=== PATIENT | male | born 1955 | race Caucasian/White ===

== ENCOUNTER → 2020-03-30 08:33 | Outpatient (CLI) | payer OTHER, SELFPAY ==
[2020-03-31 22:33] LABS: COVID19 Sendout Not Detected (Not Detect)
== END ==
PROVIDERS: Family Provider Family Medicine; PCP Family Medicine; Visit Provider Physician Assistant
DX: Z11.59 Encounter for screening for other viral diseases (principal)
CPT/HCPCS: 87635

== ENCOUNTER → 2020-04-01 11:09 | Outpatient (CLI) | payer OTHER, SELFPAY ==
[2020-04-01 12:12] LABS: Add Manual Diff / Slide Review NO; Basophils Absolute Auto 0 /uL (0-100); Basophils Percent Auto 0.4 % (0-2); Eosinophils Absolute Auto 100 /uL (0-450); Eosinophils Percent Auto 1.1 % (2-4); Hematocrit 45.8 % (41-53); Hemoglobin 15.7 g/dL (13.5-17.5); Lymphocytes Absolute Auto 1900 /uL (1100-4500); Lymphocytes Percent Auto 33.5 % (25-40); Mean Corpuscular HGB Conc 34.2 % (30-36); Mean Corpuscular Volume 96.6 fL (80-100); Monocytes Absolute Auto 600 /uL (0-900); Monocytes Percent Auto 10.4 % (3-14); Neutrophils Absolute Auto 3200 /uL (1500-7000); Neutrophils Percent Auto 54.6 % (50-75); Platelet Count 219 X10^3/uL (150-400); Red Blood Cell Count 4.74 X10^6/uL (4.5-5.9); Red Cell Distribution Width 13.1 % (11.6-14.8); White Blood Cell Count 5.8 X10^3/uL (4.5-11.0)
[2020-04-01 12:14] LABS: Appearance Urine UA CLEAR; Bilirubin Urine UA NEGATIVE (NEGATIVE); Color Urine UA YELLOW; Glucose Urine UA NEGATIVE (Negative); Ketones Urine UA NEGATIVE (NEGATIVE); Leukocyte Esterase Urine UA NEGATIVE (NEGATIVE); Nitrite Urine UA NEGATIVE (Negative); Occult Blood Urine UA TRACE-LYSED (Negative); Protein Urine UA NEGATIVE (Negative); Urobilinogen Urine UA 0.2 E.U./dL (0.2); pH Urine UA 5.5 (4.5-8.0)
[2020-04-01 12:24] LABS: Alanine Aminotransferase 16 IU/L (<50); Albumin 4.2 g/dL (3.5-5.0); Albumin Globulin Ratio 1.4 (1.0-2.8); Alkaline Phosphatase 74 U/L (38-126); Aspartate Aminotransferase 23 IU/L (17-59); BUN Creatinine Ratio 12.2 (6-22); Bilirubin Total 0.7 mg/dL (0.2-1.3); Blood Urea Nitrogen 11 mg/dL (9-20); Calcium 9.3 mg/dL (8.4-10.2); Carbon Dioxide 31 mmol/L (22-32); Chloride 104 mmol/L (98-107); Cholesterol 221 mg/dL (140-199); Estimated Glomerular Filt Rate > 60.0 mL/min (>60); Globulin 3.1 g/dL (1.7-4.1); Glucose 92 mg/dL (80-110); HDL Cholesterol 43 mg/dL (40-60); HEMOLYSIS < 15 (0-50); LDL Cholesterol Calculated 145 mg/dL (<100); Potassium 4.7 mmol/L (3.4-5.1); Sodium 139 mmol/L (137-145); Total Protein 7.3 g/dL (6.3-8.2); Triglycerides 166 mg/dL (35-150)
== END ==
PROVIDERS: Family Provider Family Medicine; PCP Registered Nurse; Referring Provider Registered Nurse; Visit Provider Registered Nurse
DX: Z00.00 Encounter for general adult medical examination without abnormal findings (principal)
CPT/HCPCS: 36415; 80053; 80061; 81003; 85025

== ENCOUNTER 2020-04-02 06:41 | Day surgery (SDC) | payer OTHER, SELFPAY ==
[2020-03-28 08:22] VITALS: BMI 27.1
[2020-04-02] VITALS (9 sets, daily range): BP systolic 111–129; BP diastolic 70–86; PULSE 77–89; RESP 10–26; TEMP 36.1–37.1; O2SAT 93–99; BMI 26.4; BMI 27.1
[2020-04-02] MEDS: LACTATED RINGERS 1,000 ML 42 ML IV (07:29)
--- NOTE | 2020-04-02 07:38 | PM.PREOP ---
Pre-operative Note COVID-19 COVID-19 status: Negative Interval Note History & Physical reviewed/Exam performed by Physician: Yes Changes to H&P: No
[2020-04-02] MEDS: CEFAZOLIN 2 GM/100 ML FROZ.PIGGY IV (07:41)
--- NOTE | 2020-04-02 08:03 | SUR.OPER ---
Supine on padded OR bed, head on pillow, arms secured on padded arm boards at <90 degrees abduction, legs uncrossed, safety belt at thigh, tape over blanket over lower legs.
[2020-04-02] MEDS: BUPIVACAINE 0.25% (PF) VIAL 30 ML INJ (08:23)
--- NOTE | 2020-04-02 09:08 | PM.OP.1 ---
Operative Date/Time/Diagnoses Date of procedure: 04/02/20 Time of procedure: 09:08 Pre-op diagnosis: Right inguinal hernia Post-op diagnosis: same Procedure & Clinicians Procedure: Open right inguinal hernia repair with mesh Same procedure as scheduled: Yes Indications: Symptomatic reducible right inguinal hernia Surgeon: King Davies Yes if Unassisted: Yes Anesthesia Type: General Operative Notes Findings: Direct floor defect, cord lipoma Specimen(s): none sent Estimated Blood Loss (mL): 20 Procedure in detail: The patient was placed supine on the table and bilateral lower extremity compression devices were applied. Anesthesia was induced they were intubated with an LMA and received 2g of Ancef. A time-out was performed. They were prepped and draped in sterile fashion. The right external inguinal ring and the anterior superior iliac crest were identified and marked. 1 finger breath above the inguinal ligament the skin was infiltrated with 0.25% bupivacaine. The skin incision was made here and the subcutaneous tissues were divided with electrocautery exposing the external oblique aponeurosis which was then opened along the direction of its fibers. Using blunt dissection the internal oblique aporneurosis was from the external oblique upper leaflet to identify the iliohypogastric nerve. Using a kittner the cord was carefully dissected away from the inguinal canal adjacent to the pubic tubercle. The cord including the vas deferens, testicular bloody supply, ilioguinal and genital nerve were encircled with a Eduar drain. A direct floor defect was identified and it was reduced into the abdomen and the internal oblique aporneuorsis was approximated to the inguinal ligament with Ethibond suture to reapproximate the floor. The cremasteric fibers surrounding the cord were divided using electrocautery adjacent to the internal ring.. The vas deferens and the testicular vessels were preserved and protected. There was no evidence of indirect hernia come there was a cord lipoma that was skeletonized away from the cord and resected. I selected a 7x 15 cm lightweight Pro Loop hernia mesh. The inferior medial aspect of the mesh was anchored to insertion of the rectus muscle to the pubic tubercle such that there was approximately 2 cm of tubercle overlap with Ethibond and then was run continuously along the inferior edge of the mesh to the shelving edge of the inguinal ligament. Interrupted 3 0 Vicryl suture was used to anchor the superior aspect of the mesh to the conjoined tendon in several places. The tails were then reapproximated loosely around the spermatic cord. The tails of the mesh were then tucked under the external oblique aponeurosis. The repair was checked for hemostasis. The wound was irrigated with sterile saline. The external oblique aponeurosis was reapproximated in a running fashion using 3 0 Vicryl. The subcutaneous tissues were reapproximated with 3 0 Vicryl skin closed with 4 0 Monocryl followed by the application of Dermabond. At the end of the operation I ensured that both testicles were within the scrotum. The sponge instrument count at the end operation was correct. The patient emerged from anesthesia was extubated and transferred to the postoperative care unit in stable condition. A total of 30 ml of of 0.25% bupivicaine was used to infiltrate the skin. Complications: none Post-operative Condition: stable Disposition: same day surgery
[2020-04-02] MEDS: fentaNYL 100 MCG/2 ML INJ IV ×2 (09:18→09:27)
[2020-04-02] MEDS: OXYCODONE/ACETAMINOPHEN 5/325 TABLET 1 TAB PO (09:52)
== END 2020-04-02 11:00 | disposition home or self-care (01) ==
PROVIDERS: Family Provider Family Medicine; PCP Registered Nurse; Referring Provider Surgery; Visit Provider Surgery
PROC: (CPT 49505; principal; 2020-04-02 07:45)
DX: K40.90 Unilateral inguinal hernia, without obstruction or gangrene, not specified as recurrent (principal)
CPT/HCPCS: 49505; C1781; J0690; J2250; J3010

== ENCOUNTER → 2020-04-17 13:05 | Outpatient (CLI) | payer OTHER, SELFPAY ==
[2020-04-18 10:36] LABS: Fecal Immunochemical Test Negative (Negative)
== END ==
PROVIDERS: Family Provider Family Medicine; PCP Registered Nurse; Referring Provider Registered Nurse; Visit Provider Registered Nurse
DX: Z12.11 Encounter for screening for malignant neoplasm of colon (principal)
CPT/HCPCS: 82274

== ENCOUNTER → 2020-09-12 12:36 | Outpatient (CLI) | payer OTHER, SELFPAY ==
[2020-09-12] MEDS: COVID-19 VACC #1, MRNA(MOD) 100 MCG/0.5 ML VIAL IM (12:51)
== END ==
PROVIDERS: PCP Registered Nurse; Visit Provider Internal Medicine
DX: Z23 Encounter for immunization (principal)
CPT/HCPCS: 0011A; 91301

== ENCOUNTER → 2020-10-10 12:28 | Outpatient (CLI) | payer OTHER, SELFPAY ==
[2020-10-10] MEDS: COVID-19 VACC #2, MRNA(MOD) 100 MCG/0.5 ML VIAL IM (12:32)
== END ==
PROVIDERS: PCP Registered Nurse; Visit Provider Internal Medicine
DX: Z23 Encounter for immunization (principal)
CPT/HCPCS: 0012A; 91301

== ENCOUNTER → 2022-05-18 10:03 | Outpatient (CLI) | payer OTHER, SELFPAY ==
[2022-05-18 11:04] LABS: Add Manual Diff / Slide Review NO; Basophils Absolute Auto 0 /uL (0-100); Basophils Percent Auto 0.4 % (0-2); Eosinophils Absolute Auto 100 /uL (0-450); Eosinophils Percent Auto 1.2 % (2-4); Hematocrit 46.5 % (41-53); Lymphocytes Absolute Auto 2000 /uL (1100-4500); Lymphocytes Percent Auto 34.8 % (25-40); Mean Corpuscular HGB Conc 34.5 % (30-36); Mean Corpuscular Hemoglobin 33.1 PG (26-34); Monocytes Absolute Auto 500 /uL (0-900); Neutrophils Absolute Auto 3100 /uL (1500-7000); Neutrophils Percent Auto 54.6 % (50-75); Platelet Count 252 X10^3/uL (150-400); Red Blood Cell Count 4.84 X10^6/uL (4.5-5.9); White Blood Cell Count 5.7 X10^3/uL (4.5-11.0)
[2022-05-18 12:02] LABS: Chloride 104 mmol/L (98-107); Potassium 4.4 mmol/L (3.4-5.1); Sodium 136 mmol/L (137-145)
[2022-05-18 12:34] LABS: Prostate Specific Antigen Scrn 1.26 ng/mL (0.1-4.0)
[2022-05-18 20:53] LABS: BUN Creatinine Ratio 12.2 (6-22); Blood Urea Nitrogen 11 mg/dL (9-20); Calcium 9.1 mg/dL (8.4-10.2); Carbon Dioxide 22 mmol/L (22-32); Cholesterol 228 mg/dL (140-199); Estimated Glomerular Filt Rate > 60 mL/min (>60); Glucose 82 mg/dL (80-110); HDL Cholesterol 39 mg/dL (40-60); HEMOLYSIS 31 (0-50); LDL Cholesterol Calculated 152 mg/dL (<100); Triglycerides 183 mg/dL (35-150)
== END ==
PROVIDERS: PCP Family Medicine; Referring Provider Family Medicine; Visit Provider Family Medicine
DX: Z12.5 Encounter for screening for malignant neoplasm of prostate (principal); E78.5 Hyperlipidemia, unspecified
CPT/HCPCS: 36415; 80048; 80061; 85025; G0103

== ENCOUNTER → 2022-06-11 15:58 | Outpatient (CLI) | payer OTHER, SELFPAY ==
--- NOTE | 2022-06-11 16:06 | DI.RAD.S_ITS ---
PROCEDURE: XR KNEE LT 3V INDICATIONS: Pain TECHNIQUE: 3 views of the knee were acquired. COMPARISON: None. FINDINGS: Bones: No fractures or dislocations. No suspicious bony lesions. Tricompartmental degenerative changes with medial joint space narrowing. Soft tissues: No joint effusion. No suspicious soft tissue calcifications. IMPRESSION: Tricompartmental degenerative changes and medial joint space narrowing consistent with osteoarthritis. Dictated by: Shon Caceres M.D. on 06/12/2022 at 10:27 Approved by: Shon Caceres M.D. on 06/12/2022 at 10:28
[2022-06-16 17:11] LABS: Fecal Immunochemical Test Negative (Negative)
== END ==
PROVIDERS: PCP Family Medicine; Visit Provider Family Medicine
DX: M25.562 Pain in left knee (principal); E78.5 Hyperlipidemia, unspecified; G89.29 Other chronic pain; Z76.89 Persons encountering health services in other specified circumstances
CPT/HCPCS: 73562; 82274

== ENCOUNTER → 2024-05-16 15:50 | Outpatient (CLI) | payer OTHER, SELFPAY ==
[2024-05-17 18:36] LABS: Fecal Immunochemical Test Negative (Negative)
== END ==
PROVIDERS: Family Provider Family Medicine; PCP Family Medicine; Referring Provider Family Medicine; Visit Provider Family Medicine
DX: Z12.11 Encounter for screening for malignant neoplasm of colon (principal); Z12.12 Encounter for screening for malignant neoplasm of rectum
CPT/HCPCS: 82274

== ENCOUNTER → 2024-11-15 14:22 | Outpatient (CLI) | payer OTHER, SELFPAY ==
[2024-11-15 14:57] LABS: Add Manual Diff / Slide Review NO; Basophils Absolute Auto 0 /uL (0-100); Basophils Percent Auto 0.4 % (0-2); Eosinophils Absolute Auto 100 /uL (0-450); Hematocrit 45.5 % (41-53); Hemoglobin 15.6 g/dL (13.5-17.5); Lymphocytes Absolute Auto 1700 /uL (1100-4500); Lymphocytes Percent Auto 29.3 % (25-40); Mean Corpuscular HGB Conc 34.2 % (30-36); Mean Corpuscular Hemoglobin 33.2 PG (26-34); Mean Corpuscular Volume 97.1 fL (80-100); Monocytes Absolute Auto 500 /uL (0-900); Monocytes Percent Auto 8.4 % (3-14); Neutrophils Absolute Auto 3500 /uL (1500-7000); Neutrophils Percent Auto 60.9 % (50-75); Platelet Count 214 X10^3/uL (150-400); Red Blood Cell Count 4.69 X10^6/uL (4.5-5.9); Red Cell Distribution Width 13.1 % (11.6-14.8); White Blood Cell Count 5.8 X10^3/uL (4.5-11.0)
[2024-11-15 15:10] LABS: Hemoglobin A1C% w Est Avg Glu 4.9 % (4.0-6.0)
[2024-11-15 15:29] LABS: Alanine Aminotransferase 19 IU/L (<50); Albumin 4.4 g/dL (3.5-5.0); Albumin Globulin Ratio 1.8 (1.0-2.8); Alkaline Phosphatase 86 U/L (38-126); Aspartate Aminotransferase 27 IU/L (17-59); BUN Creatinine Ratio 11.3 (6-22); Bilirubin Total 0.9 mg/dL (0.2-1.3); Blood Urea Nitrogen 11 mg/dL (9-20); Calcium 9.4 mg/dL (8.4-10.2); Carbon Dioxide 30 mmol/L (22-32); Chloride 102 mmol/L (98-107); Cholesterol 205 mg/dL (140-199); Estimated Glomerular Filt Rate > 60 mL/min (>60); Globulin 2.5 g/dL (1.7-4.1); Glucose 84 mg/dL (70-99); HDL Cholesterol 46 mg/dL (40-60); HEMOLYSIS < 15 (0-50); LDL Cholesterol Calculated 131 mg/dL (<100); Potassium 4.1 mmol/L (3.4-5.1); Sodium 139 mmol/L (137-145); Total Protein 6.9 g/dL (6.3-8.2); Triglycerides 138 mg/dL (35-150); Uric Acid 6.7 mg/dL (3.5-8.5)
[2024-11-15 16:00] LABS: Prostate Specific Antigen Scrn 2.96 ng/mL (0.1-4.0)
[2024-11-15 16:19] LABS: Vitamin B12 768 pg/mL (239-931)
== END ==
PROVIDERS: Family Provider Family Medicine; PCP Family Medicine; Referring Provider Family Medicine; Visit Provider Family Medicine
DX: Z12.5 Encounter for screening for malignant neoplasm of prostate (principal); E78.5 Hyperlipidemia, unspecified; G60.9 Hereditary and idiopathic neuropathy, unspecified
CPT/HCPCS: 36415; 80053; 80061; 82607; 83036; 84550; 85025; G0103